=== PATIENT | female | born 1960 | race Caucasian/White ===

== ENCOUNTER 2018-10-09 15:39 | Emergency (ER) | payer BC, OTHER ==
--- NOTE | 2018-10-09 15:49 | PDOC ---
History of Present Illness - General Chief Complaint: Laceration Stated Complaint: FLAP LACERATION OVER RIGHT LOWER THUMB JOINT Time Seen by Provider: 10/09/18 15:42 - History of Present Illness Initial Comments: 58yo F with no significant PMH presenting with laceration on her right hand. She reports washing dishes when a water glass broke and cut her about two hours prior to arrival. The wound bled and she cleansed it with water. The patient delayed coming to the ED because she was waiting to achieve hemostasis. She does not know when her last tetanus shot was. Patient took ibuprofen which she says is controlling her pain. 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 No fevers, chills, chest pain, or shortness of breath. Past History - Past Medical History Allergies/Adverse Reactions: Allergies Allergy/AdvReac Type Severity Reaction Status Date / Time No Known Allergies Allergy Unverified 10/09/18 16:07 Home Medications: Ambulatory Orders Levothyroxine [Synthroid -] 100 mcg PO ASDIR 05/14/16 Cephalexin [Keflex] 500 mg PO BID #10 capsule 10/09/18 Thyroid Disease: Yes - Suicide/Smoking/Psychosocial Hx Smoking Status: No Smoking History: Never smoked Have you smoked in the past 12 months: No Number of Cigarettes Smoked Daily: 0 Hx Alcohol Use: No Drug/Substance Use Hx: No Substance Use Type: None Review of Systems - Review of Systems Comments:: Constitutional: no fever, no chills HEENT: no throat pain, no dysphagia Cardiovascular: no chest pain, no palpitations Respiratory: no cough, no shortness of breath Gastrointestinal: no abdominal pain, no nausea Genitourinary: no dysuria, no frequency Musculoskeletal: no myalgia, no arthralgia Skin: +laceration, no itching Neurologic: no headache, no dizziness *Physical Exam - Physical Exam Comments: General: Awake, alert, and fully oriented, in no acute distress Head: No signs of trauma Eyes: EOMI ENT: Moist mucus membranes Neck: Normal ROM, supple Lungs: Lungs clear Cardio: Regular rhythm, S1 and S2 present Abdomen: Soft, nondistended Extremities: Normal range of motion, Distal pulses present SKIN: Warm, Dry, normal turgor 1.5x1.5cm flap laceration at base of first metacarpal of right hand, hemostatic Neurologic: Cranial nerves II through XII grossly intact. Normal speech Procedures - Laceration/Wound Repair Right Dorsal Finger 1st digit Wound Length: to 2.5 cm Wound Explored: clean Wound's Depth, Shape: flap Irrigated w/ Saline: Yes Anesthesia: 1% Lidocaine Wound Repaired With: Sutures Suture Size/Type: 4:0, other (monocryl) Number of Sutures: 4 Sterile Dressing Applied: Yes Medical Decision Making - Medical Decision Making 58yo F with no significant PMH presenting with laceration on her right hand. Laceration repair with 4 sutures Instructed to return in 10-12 days for wound check and suture removal Boostrix administered Keflex sent to pharmacy Patient discharged 10/09/18 17:24 *DC/Admit/Observation/Transfer Diagnosis at time of Disposition: Finger laceration - Discharge Dispostion Disposition: HOME Condition at time of disposition: Stable - Prescriptions Prescriptions: Cephalexin [Keflex] 500 mg PO BID #10 capsule - Referrals - Patient Instructions Printed Discharge Instructions: DI for Laceration Repair Additional Instructions: You came to the ED for laceration on your right hand. Return to the ED in 12-14 days for wound check and suture removal. Antibiotics sent to your pharmacy. Take one tablet twice a day for five days. You can take [id number] tylenol or ibuprofen for pain. Follow the instructions on the medication bottle. The wound was cleaned and you received stitches. Keep the area clean. RETURN to the ED if you experience: redness or hardness around the wound, pain or tenderness, a red streak, yellow or green discharge oozing from the wound, fever or chills. - Post Discharge Activity Forms/Work/School Notes: Back to Work
[2018-10-09 15:53] VITALS: BP 116/73; PULSE 76; TEMP 97.7; BMI 23.6
[2018-10-09] MEDS ORDERED: DIPHTH,PERTUSS(ACELL),TET 0.5 ML DISP.SYRIN IM ONE (16:04)
== END 2018-10-09 17:20 | disposition home or self-care (01) ==
LOC: FER 15:39
PROC: 0HQFXZZ Repair Right Hand Skin, External Approach (ICD-10-PCS; principal; 2018-10-09)
PROC: 3E0234Z Introduction of Serum, Toxoid and Vaccine into Muscle, Percutaneous Approach (ICD-10-PCS; 2018-10-09)
DX: S61.411A Laceration without foreign body of right hand, initial encounter (principal); W25.XXXA Contact with sharp glass, initial encounter; Y93.G1 Activity, food preparation and clean up; Y92.9 Unspecified place or not applicable
CPT/HCPCS: 90715; 99282-25

== ENCOUNTER 2021-09-17 11:22 | Emergency (ER) | payer BC, OTHER ==
[2021-09-17 11:39] VITALS: BP 107/66; PULSE 71; TEMP 97.8; BMI 23.8
[2021-09-17] MEDS ORDERED: ACETAMINOPHEN 325 MG TABLET (FP) PO ONE (11:39)
[2021-09-17] MEDS ORDERED: ACETAMINOPHEN 500 MG TABLET (FP) ONE (11:44)
== END 2021-09-17 13:15 | disposition home or self-care (01) ==
LOC: FER 11:22
DX: M71.21 Synovial cyst of popliteal space [Baker], right knee (principal); I87.2 Venous insufficiency (chronic) (peripheral); M25.561 Pain in right knee
CPT/HCPCS: 73562-TC-RT-FY; 93971-TC; 99284-25

== ENCOUNTER 2021-11-22 17:45 | Emergency (ER) | payer BC, OTHER ==
[2021-11-22 18:15] VITALS: BP 140/79; PULSE 73; TEMP 99; BMI 23.8
== END 2021-11-22 18:48 | disposition home or self-care (01) ==
LOC: FER 17:45
DX: T65.91XA Toxic effect of unspecified substance, accidental (unintentional), initial encounter (principal)
CPT/HCPCS: 99281-25